=== PATIENT | female | born 2005 | race African-American/Black ===

== ENCOUNTER 2023-03-03 03:16 | Inpatient (IN) | payer OTHER ==
[2023-03-03 03:42] VITALS: BMI 42.0
[2023-03-03 04:24] LABS: Fetal Membranes Rupture RUPTURE DETECTED (No Rupture)
[2023-03-03] MEDS ORDERED: Acetaminophen 500 MG TAB PO PRN (04:43)
[2023-03-03] MEDS ORDERED: Ondansetron PF 4 MG/2 ML Vial IVP PRN ×4 (04:43→19:27)
[2023-03-03] MEDS ORDERED: Methylergonovine 0.2 MG/ML VIAL IM PRN (04:43)
[2023-03-03] MEDS ORDERED: Tranexamic Acid 1,000 MG/10 ML VIAL IVP PRN (04:43)
[2023-03-03] MEDS ORDERED: Docusate 100 MG CAP PO PRN (04:43)
[2023-03-03] MEDS ORDERED: Diphenoxylate HCl/Atropine Tablet PO PRN (04:43)
[2023-03-03] MEDS ORDERED: hydrALAZINE 20 MG/ML VIAL SLOW IVP PRN ×2 (04:43→19:27)
[2023-03-03] MEDS ORDERED: Misoprostol 200 MCG TAB PR PRN (04:43)
[2023-03-03] MEDS ORDERED: Carboprost 250 MCG/ML AMP IM PRN (04:43)
[2023-03-03] MEDS ORDERED: Butorphanol Tartrate 1 MG/ML VIAL SLOW IVP PRN (04:43)
[2023-03-03] MEDS ORDERED: Promethazine HCl 25 MG/ML VIAL IM PRN ×3 (04:43→15:23)
[2023-03-03] MEDS ORDERED: NS w/ Oxytocin 30 units 500 ML IV SCH (04:45)
[2023-03-03] MEDS ORDERED: Ibuprofen 800 MG TAB PO PRN (04:46)
[2023-03-03] MEDS ORDERED: Lidocaine 1% (PF) 30 ML VIAL SC PRN (04:46)
[2023-03-03] MEDS ORDERED: HYDROcodone/Acetaminophen 5/325 mg Tablet PO PRN (04:46)
[2023-03-03] MEDS ORDERED: Penicillin G Potassium 5 MILL.UNITS in Sodium Chloride 0.9% 100 ML IVPB SCH (05:00)
[2023-03-03] MEDS: Lactated Ringer's 1,000 ML IV SCH ×3 (05:10→13:27)
[2023-03-03 05:39] LABS: Hemoglobin 9.9 g/dL (12.0-15.5); Mean Corpuscular HGB CONC 32.1 g/dL (32.0-36.0); Mean Corpuscular Volume 80.8 fl (81.6-98.3); Platelet Count 465 10x3/uL (150-450); RBC Distribution Width 13.2 % (11.5-14.5); Red Blood Cell (RBC) Count 3.81 10x6/uL (3.90-5.03); White Blood Cell (WBC) Count 13.8 10x3/uL (3.5-10.5)
[2023-03-03 06:13] LABS: HBSAg Index 0.14 S/CO (0-0.99); Hep B Surf Ag - L&D Non-Reactive S/CO (NonReactive)
[2023-03-03 06:15] LABS: Syphilis Antibody Nonreactive (Nonreactive); Syphilis Antibody Index 0.03 S/CO (<1.00 Non-Reactive)
[2023-03-03] MEDS ORDERED: Bupivacaine HCl 0.5%/Epinephrine 1:200,000/PF 30 ml Vial ONE (08:00)
[2023-03-03] MEDS ORDERED: Bupivacaine/Epinephrine 0.25% 30 ML VIAL ONE (08:00)
[2023-03-03] MEDS ORDERED: Lidocaine 2% 10 ML INJ ONE (08:00)
[2023-03-03] MEDS ORDERED: Moisturizing Cream (Eucerin) 113 GM JAR TOP PRN ×2 (08:01→15:23)
[2023-03-03] MEDS ORDERED: ePHEDrine Sulfate 50 MG/10 ML VIAL SLOW IVP PRN (08:01)
[2023-03-03] MEDS ORDERED: Naloxone HCl 0.4 mg/ml Vial IVP PRN ×4 (08:01→15:23)
[2023-03-03] MEDS ORDERED: Lactated Ringer's 500 ML IV PRN (08:01)
[2023-03-03] MEDS ORDERED: Acetaminophen 325 MG TAB PO PRN (08:01)
[2023-03-03] MEDS ORDERED: diphenhydrAMINE 50 MG/ML VIAL IVP PRN ×2 (08:01→15:23)
[2023-03-03] MEDS ORDERED: Fentanyl 2 mcg/Bupivacaine 0.1% Cassette 100 ML EPIDURAL SCH (08:15)
[2023-03-03] MEDS ORDERED: Communication Order-Pharmacy FS SCH ×2 (08:15→15:30)
[2023-03-03] MEDS ORDERED: Fentanyl 2 mcg/Bup 0.1% Cadd 100 ML ONE (08:31)
[2023-03-03] MEDS: Penicillin G 2.5 MILL.units 2.5 MILL.UNITS in Premix Bag 1 BAG IVPB SCH ×3 (09:15→23:28)
[2023-03-03] MEDS ORDERED: CEFAZOLIN 2 GM VIAL ONE (13:04)
[2023-03-03] MEDS ORDERED: Azithromycin 500 MG VIAL ONE (13:04)
[2023-03-03] MEDS ORDERED: Phenylephrine 40 MG/NS 250 ML 250 ML ONE (13:15)
[2023-03-03] MEDS ORDERED: Fentanyl 100 MCG/2 ML VIAL ONE (13:15)
[2023-03-03] MEDS ORDERED: Dexamethasone 4 mg/ml Vial ONE (13:21)
[2023-03-03] MEDS ORDERED: Ondansetron PF 4 MG/2 ML Vial ONE (13:21)
[2023-03-03] MEDS ORDERED: Oxytocin 10 UNITS/ML VIAL ONE (13:22)
[2023-03-03] MEDS ORDERED: Bicitra 30 ML UDCUP PO PRN (13:32)
[2023-03-03] MEDS ORDERED: Famotidine/PF 20 mg/2ml Vial SLOW IVP PRN (13:32)
[2023-03-03] MEDS ORDERED: Azithromycin 500 MG in Sodium Chloride 0.9% 250 ML 250 ML IVPB SCH (13:45)
[2023-03-03] MEDS ORDERED: CEFAZOLIN 2 GM in Sodium Chloride 0.9% 100 ML IVPB SCH (13:45)
[2023-03-03] MEDS ORDERED: Midazolam HCl 2 mg/2 ml Vial ONE (14:24)
[2023-03-03] MEDS ORDERED: Promethazine HCl 25 MG/ML VIAL ONE (14:51)
[2023-03-03] MEDS ORDERED: Ketorolac Tromethamine 30 MG/ML VIAL ONE (14:57)
[2023-03-03] MEDS ORDERED: Ondansetron HCl/PF 4 MG/2 ML Vial IVP PRN (15:23)
[2023-03-03] MEDS ORDERED: Fentanyl 100 MCG/2 ML VIAL SLOW IVP PRN (15:23)
[2023-03-03] MEDS ORDERED: Meperidine HCl/PF 25 MG/ML VIAL SLOW IVP PRN (15:23)
[2023-03-03] MEDS ORDERED: Naloxone HCl 0.4 mg/ml Vial IV PRN (15:23)
[2023-03-03] MEDS ORDERED: Promethazine HCl 25 MG SUPP PR PRN (15:23)
[2023-03-03] MEDS ORDERED: Lanolin Ointment 7 GM TUBE TOP PRN (19:27)
[2023-03-03] MEDS ORDERED: Bisacodyl 10 MG SUPP PR PRN (19:27)
[2023-03-03] MEDS ORDERED: diphenhydrAMINE 25 MG CAP PO PRN (19:27)
[2023-03-03] MEDS ORDERED: Boostrix 0.5 ML (Tdap) VIAL (>/=7 yrs of age) IM ONE (19:27)
[2023-03-03] MEDS: Ferrous Sulfate 325 MG TAB PO SCH (19:35)
[2023-03-03] MEDS ORDERED: Ketorolac Tromethamine 30 MG/ML VIAL IVP SCH (21:30)
[2023-03-03] MEDS: Ketorolac Tromethamine 30 MG/ML VIAL IVP SCH (22:41)
[2023-03-03] MEDS ORDERED: Morphine 4 MG/ML VIAL SLOW IVP SCH (23:00)
[2023-03-04 03:15] LABS: Hemoglobin 8.2 g/dL (12.0-15.5); Mean Corpuscular HGB CONC 32.2 g/dL (32.0-36.0); Mean Corpuscular Hemoglobin 25.8 pg (27.0-33.0); Mean Corpuscular Volume 80.2 fl (81.6-98.3); Mean Platelet Volume 9.7 fl (7.4-10.4); Platelet Count 374 10x3/uL (150-450); RBC Distribution Width 13.1 % (11.5-14.5); Red Blood Cell (RBC) Count 3.18 10x6/uL (3.90-5.03); White Blood Cell (WBC) Count 22.3 10x3/uL (3.5-10.5)
[2023-03-04] MEDS ORDERED: HYDROcodone/Acetaminophen 5/325 mg Tablet PO PRN (03:30)
[2023-03-04] MEDS: Ketorolac Tromethamine 30 MG/ML VIAL IVP SCH ×3 (05:12→14:42)
[2023-03-04] MEDS: Ferrous Sulfate 325 MG TAB PO SCH ×2 (09:46→21:03)
[2023-03-04] MEDS: Prenatal Vitamin 1 TAB PO SCH (09:46)
[2023-03-04] MEDS: HYDROcodone/Acetaminophen 5/325 mg Tablet PO PRN ×3 (09:47→21:04)
[2023-03-04] MEDS: Ibuprofen 800 MG TAB PO SCH (21:04)
[2023-03-04] MEDS ORDERED: Ibuprofen 800 MG TAB PO PRN (22:00)
[2023-03-05] MEDS: Ibuprofen 800 MG TAB PO SCH ×3 (05:27→21:38)
[2023-03-05] MEDS: HYDROcodone/Acetaminophen 5/325 mg Tablet PO PRN ×3 (08:36→21:39)
[2023-03-05] MEDS: Ferrous Sulfate 325 MG TAB PO SCH ×2 (08:37→21:37)
[2023-03-05] MEDS: Simethicone Chewable 80 MG TAB PO PRN ×2 (08:37→14:06)
[2023-03-05] MEDS: Prenatal Vitamin 1 TAB PO SCH (08:37)
[2023-03-05] MEDS: Betamethasone 0.1% Cream 15 GM TUBE TOP SCH ×2 (16:30→21:42)
[2023-03-06] MEDS: HYDROcodone/Acetaminophen 5/325 mg Tablet PO PRN ×2 (05:03→20:51)
[2023-03-06] MEDS: Ibuprofen 800 MG TAB PO SCH ×3 (06:08→21:50)
[2023-03-06] MEDS: Ferrous Sulfate 325 MG TAB PO SCH ×2 (07:54→21:51)
[2023-03-06] MEDS: Prenatal Vitamin 1 TAB PO SCH (07:55)
[2023-03-06] MEDS: Betamethasone 0.1% Cream 15 GM TUBE TOP SCH ×3 (07:57→21:52)
[2023-03-07] MEDS: Ibuprofen 800 MG TAB PO SCH ×2 (06:08→13:49)
[2023-03-07] MEDS: Prenatal Vitamin 1 TAB PO SCH (08:04)
[2023-03-07] MEDS: Ferrous Sulfate 325 MG TAB PO SCH (08:04)
[2023-03-07] MEDS: Betamethasone 0.1% Cream 15 GM TUBE TOP SCH ×2 (08:05→13:51)
[2023-03-08 03:03] VITALS: BP 134/68; TEMP 98.1
== END 2023-03-07 20:15 | disposition home or self-care (01) | DRG 788 ==
LOC: CSHLD/OP 03:16 → CSHLD 04:33 → CSHPP 18:30
PROVIDERS: ADMIT Family Medicine; ATTEND Family Medicine
PROC: 10D00Z1 Extraction of Products of Conception, Low, Open Approach (ICD-10-PCS; principal; 2023-03-03)
PROC: 10907ZC Drainage of Amniotic Fluid, Therapeutic from Products of Conception, Via Natural or Artificial Opening (ICD-10-PCS; 2023-03-03)
PROC: 10H07YZ Insertion of Other Device into Products of Conception, Via Natural or Artificial Opening (ICD-10-PCS; 2023-03-03)
DX: O42.02 Full-term premature rupture of membranes, onset of labor within 24 hours of rupture (principal); Z3A.39 39 weeks gestation of pregnancy; Z37.0 Single live birth; O77.0 Labor and delivery complicated by meconium in amniotic fluid; O76 Abnormality in fetal heart rate and rhythm complicating labor and delivery; O99.824 Streptococcus B carrier state complicating childbirth
CPT/HCPCS: 36415; 51702; 84112; 85027; 86780; 86850; 86900; 86901; 87340; 99285; J1100; J1885; J2250; J2270; J2405; J2540; J2550; J2590; J3010; J3490; J7120

== ENCOUNTER 2024-10-22 17:06 | Emergency (ER) | payer SELFPAY, OTHER ==
[2024-10-22] MEDS ORDERED: Ibuprofen 200 MG TAB ONE (17:35)
== END 2024-10-22 18:10 | disposition home or self-care (01) ==
LOC: CSHERS 17:06
DX: M54.50 Low back pain, unspecified (principal); V49.9XXA Car occupant (driver) (passenger) injured in unspecified traffic accident, initial encounter
CPT/HCPCS: 72100; 99284